=== PATIENT | female | born 1990 | race Caucasian/White ===

== ENCOUNTER 2020-06-28 11:19 | Outpatient (CLI) | payer MEDICAID, OTHER ==
[2020-06-28 21:54] LABS: SARS-CoV-2 PCR by NAA Not Detected (NotDetected)
== END 2020-06-28 11:20 | disposition home or self-care (01) ==
LOC: CSHLAB 11:19
PROVIDERS: ATTEND Family Medicine
DX: Z20.822 Contact with and (suspected) exposure to COVID-19 (principal)
CPT/HCPCS: 87635; U0003; U0005